=== PATIENT | female | born 1955 | race Caucasian/White ===

== ENCOUNTER 2017-01-24 11:51 | Emergency (ER) | payer OTHER ==
[2017-01-24 12:13] VITALS: BP 103/85
--- NOTE | 2017-01-24 13:16 | UC ---
Skin Complaint HPI - HPI Summary HPI Summary: PT FELL WHILE RUNNING APPROX 1/2 HR AGO. ABRASIONS UPPER LIP, LEFT KNEE, LEFT SHOULDER AND LAC ABOVE LEFT EYE. jammed 4th digit left hand and with pain . denies LOC. denies headache or visual changes [ End ] - History of Current Complaint Chief Complaint: UCTrauma Time Seen by Provider: 01/24/17 13:05 Stated Complaint: FACIAL INJURY S/P FALL Hx Obtained From: Patient ?: No Onset/Duration: Sudden Onset Skin Exposure Onset/Duration: Hours Ago Timing: Constant Onset Severity: Moderate Current Severity: Moderate Location: Generalized, Face Aggravating: Nothing Alleviating: Nothing Associated Signs & Symptoms: Positive: Negative Related History: Trauma - Allergy/Home Medications Allergies/Adverse Reactions: Allergies Allergy/AdvReac Type Severity Reaction Status Date / Time No Known Allergies Allergy Verified 01/24/17 12:13 Review of Systems Constitutional: Negative Skin: Negative, Other - abrasion Eyes: Negative ENT: Negative Respiratory: Negative Cardiovascular: Negative Gastrointestinal: Negative Genitourinary: Negative Motor: Negative Neurovascular: Negative Musculoskeletal: Arthralgia Neurological: Negative Psychological: Negative All Other Systems Reviewed And Are Negative: Yes PMH/Surg Hx/FS Hx/Imm Hx Previously Healthy: Yes Endocrine History Of: Denies: Diabetes, Thyroid Disease, Hyperthyroidism, Hypothyroidism Cardiovascular History Of: Denies: Cardiac Disorders, Hypertension, Pacemaker/ICD Neurological History Of: Denies: TIA, Seizures Psychological History Of: Denies: Anxiety, Depression Cancer History Of: Denies: Breast Cancer - Surgical History Surgical History: None - Family History Known Family History: Positive: Hypertension - Social History Occupation: Employed Full-time Lives: With Family Alcohol Use: None Substance Use Type: None Smoking Status (MU): Never Smoked Tobacco - Immunization History Most Recent Tetanus Shot: 2007 Physical Exam Triage Information Reviewed: Yes Appearance: Well-Appearing, No Pain Distress, Well-Nourished Vital Signs: Initial Vital Signs Temp 98 F 01/24/17 12:04 Pulse 78 01/24/17 12:04 Resp 22 01/24/17 12:04 BP 103/85 01/24/17 12:04 Pulse Ox 100 01/24/17 12:04 Eye Exam: Normal ENT Exam: Normal Dental Exam: Normal Neck exam: Normal Neck: Positive: 1 Respiratory Exam: Normal Cardiovascular Exam: Normal Musculoskeletal Exam: Normal Musculoskeletal: Positive: Strength Intact, ROM Intact - left shoulder / knee and wrist FROM and strength 5/5, ROM Limited @ - left 4th finger with distal MCP tenderness and bruising present cap refill < 3 sec and FROM Neurological Exam: Normal Psychological Exam: Normal Skin Exam: Normal Skin: Positive: Other - left superior eye lid with linear 1cm laceration well approximated not bleeding and superficial. left upper lip superficial abrasion , left shoulder and elbow and left lateral knee superficial abrasion . Laceration Repair - Laceration Repair 1 Description: Linear Closure Material: SteriStrips Course/Dx - Diagnoses Provider Diagnoses: Fall with laceration left upper eye lid, left arm abrasion, left upper lip abrasion, left knee abrasion and left 4th ring finger sprain Discharge - Discharge Plan Condition: Good Disposition: HOME Patient Education Materials: Laceration (ED) Referrals: Shell Morales NP [Primary Care Provider] - 3 Days Additional Instructions: Due to your fall and skin concerns we gave you a tetanus shot.
[2017-01-24] MEDS ORDERED: Tetan/Diph/Pertus SYR(Tdap)* 0.5 ML SYR(BOOSTRIX) use SYR IM ONE (13:26)
--- NOTE | 2017-01-24 13:40 | RAD ---
Indication: Pain distal phalanx LEFT ring finger post fall. Comparison: None. Technique: 3 views LEFT fourth finger. REPORT AND IMPRESSION: Negative for fracture or malalignment. Soft tissue swelling at the level of the proximal interphalangeal joint and distal phalanx.
== END 2017-01-24 14:08 | disposition home or self-care (01) ==
LOC: UCCORT 11:51
DX: S01.112A Laceration without foreign body of left eyelid and periocular area, initial encounter (principal); S00.511A Abrasion of lip, initial encounter; S40.812A Abrasion of left upper arm, initial encounter; S80.212A Abrasion, left knee, initial encounter; S63.615A Unspecified sprain of left ring finger, initial encounter; W18.30XA Fall on same level, unspecified, initial encounter; Y93.02 Activity, running; Y92.9 Unspecified place or not applicable; Z23 Encounter for immunization
CPT/HCPCS: 73140; 90471; 90715; 99212; G0463